=== PATIENT | female | born 1975 | race Caucasian/White ===

== ENCOUNTER 2021-01-08 07:53 | Day surgery (SDC) | payer OTHER, SELFPAY ==
[2021-01-06 11:01] LABS: BASOPHILS % (AUTO) 0.6 % (0.0-2.0); EOSINOPHILS # (AUTO) 0.2 K/uL (0-0.4); EOSINOPHILS % (AUTO) 3.3 % (0.0-4.0); HEMATOCRIT 32.9 % (36-48); HEMOGLOBIN 10.8 g/dL (12.0-16.0); LYMPHOCYTES # (AUTO) 1.6 K/uL (2.5-16.5); LYMPHOCYTES % (AUTO) 29.5 % (20.5-51.1); MEAN CORPUSCULAR HEMOGLOBIN 24 pg (27-31); MEAN CORPUSCULAR HGB CONC 33 g/dL (33-37); MEAN CORPUSCULAR VOLUME 73.5 fL (80-94); MONOCYTES # (AUTO) 0.5 K/uL (0.8-1.0); MONOCYTES % (AUTO) 9.5 % (1.7-9.3); NEUTROPHILS # (AUTO) 3.2 K/uL (1.8-7.7); NEUTROPHILS % (AUTO) 57.1 % (42.2-75.2); PLATELET COUNT (AUTO) 234 K/uL (140-450); RED BLOOD CELL COUNT(AUTO) 4.48 MIL/uL (4.20-5.40); RED CELL DISTRIBUTION WIDTH 15.9 % (11.6-13.7); WHITE BLOOD COUNT (AUTO) 5.6 K/uL (4.8-10.8)
[2021-01-06 11:27] LABS: ANION GAP 10.8 (8-16); CARBON DIOXIDE 26.8 mmol/L (21-32); CREATININE 0.7 mg/dL (0.6-1.3); POTASSIUM 3.6 mmol/L (3.5-5.1); TOTAL BILIRUBIN 0.3 mg/dL (0.0-1.0)
[2021-01-06 12:37] LABS: ALBUMIN 3.6 g/dL (3.4-5.0)
[~2021-01-08] VITALS: Ht 157.5 cm; Wt 68.5 kg
[2021-01-08] MEDS ORDERED: PROPOFOL 200 MG/20 ML VIAL IV ONE (11:01)
[2021-01-08] MEDS ORDERED: LIDOCAINE 2% 100 MG/5 ML SYR IVP ONE (11:01)
[2021-01-08] MEDS ORDERED: fentaNYL citrate 0.05 MG/ML VIAL ONE (11:01)
[2021-01-08] MEDS ORDERED: SEVOFLURANE 250 ML BTL INH ONE (11:01)
[2021-01-08] MEDS ORDERED: ONDANSETRON 4 MG/2 ML VIAL IVP PRN ×2 (11:30→12:30)
[2021-01-08] MEDS ORDERED: MEPERIDINE 25 MG/ML SYR IVP PRN ×2 (11:30→12:30)
[2021-01-08] MEDS ORDERED: HYDROmorphone 1 MG/ML AMP IVP PRN ×2 (11:30→12:30)
[2021-01-08] MEDS ORDERED: LACTATED RINGERS 1,000 ML IV SCH ×2 (11:30→12:30)
[2021-01-08] MEDS ORDERED: diphenhydrAMINE 50 MG/ML VIAL IVP PRN ×2 (11:30→12:30)
== END 2021-01-08 13:22 | disposition home or self-care (01) ==
LOC: MDS 07:53 → MMU 08:06 → MDS 13:22
PROVIDERS: ATTEND Obstetrics & Gynecology
DX: N92.0 Excessive and frequent menstruation with regular cycle (principal)
CPT/HCPCS: 36415; 58563; 80053; 84703; 85025; 87426; J2001; J2704; J3010